=== PATIENT | female | born 1970 | race Hispanic/Latino ===

== ENCOUNTER 2021-10-28 23:26 | Emergency (ER) | payer SELFPAY ==
[~2021-10-28] VITALS: Ht 157.5 cm; Wt 78.5 kg
[~2021-10-28 23:26] MED LIST: DICY10 PO
[2021-10-29 01:16] LABS: APPEARANCE,URINE Clear (CLEAR); BILIRUBIN,URINE Negative (NEGATIVE); COLOR,URINE Yellow (YELLOW); GLUCOSE, URINE (UA) Negative (NEGATIVE); KETONES,URINE Negative (NEGATIVE); LEUKOCYTE ESTERASE ,URINE Trace (NEGATIVE); NITRATE,URINE Negative (NEGATIVE); OCCULT BLOOD,URINE Negative (NEGATIVE); PROTEIN,URINE POS 1+ mg/dL (NEGATIVE)
[2021-10-29] MEDS ORDERED: PHEN-847 PO (01:22)
[2021-10-29] MEDS ORDERED: CEPH500B PO (01:22)
[2021-10-29] MEDS ORDERED: IBUP-2070 PO (01:22)
[2021-10-29] MEDS ORDERED: ACETAMINOPHEN 500 MG TABLET PO ONE (01:30)
[2021-10-29] MEDS ORDERED: CEFTRIAXONE 1G VIAL IM ONE (01:30)
[2021-10-29] MEDS ORDERED: PHENAZOPYRIDINE HCL 200 MG TABLET PO ONE (01:30)
[2021-10-29] MEDS ORDERED: LIDOCAINE HCL-MPF 1% 2ML VIAL ONE (01:41)
[2021-10-29 01:46] VITALS: BP 125/74
[2021-10-29 01:58] LABS: BACTERIA,URINE Rare /HPF (None Seen); MUCUS,URINE Few LPF (None Seen); RBC,URINE None Seen /HPF (0-1); SQUAMOUS EPITHELIAL CELL,UR Rare /HPF (0-2)
== END 2021-10-29 01:53 | disposition home or self-care (01) ==
LOC: EDH 23:26
DX: N39.0 Urinary tract infection, site not specified (principal)
CPT/HCPCS: 81001; 87088; 96372; 99283; J0696; J3490